=== PATIENT | female | born 1995 | race Caucasian/White ===

== ENCOUNTER → 2017-01-30 | Outpatient (CLI) | payer OTHER ==
--- NOTE | 2017-01-30 16:50 | REP ---
Left hand series: Four views. History: Pain. Findings: Four views of the left hand demonstrate normal bones, joints and soft tissues. Impression: Negative left hand radiographs. Signed by Ellis Barbosa MD 01/30/2017 04:43 P
--- NOTE | 2017-01-30 16:51 | REP ---
Left wrist series: Four views. History: Left wrist pain. Findings: Four views of the left wrist demonstrate normal bones, joints, and soft tissues. No fracture or subluxation is seen. Impression: Negative left wrist series. Signed by Ellis Barbosa MD 01/30/2017 04:43 P
--- NOTE | 2017-01-31 08:29 | REP ---
Left forearm series: Two views. History: Left wrist pain. Findings: AP and lateral views of the left forearm demonstrate normal bones, joints, and soft tissues. No fracture or subluxation is seen. Impression: Negative left forearm. Signed by Ellis Barbosa MD 01/31/2017 08:43 A
== END ==
LOC: M LRY 16:16
PROVIDERS: ATTEND Physician Assistant
DX: M25.532 Pain in left wrist (principal)

== ENCOUNTER → 2017-12-24 | Outpatient (REF) | payer OTHER ==
[2017-12-24 17:17] LABS: INFLUENZA A AMPLIFICATION POSITIVE (NEGATIVE); INFLUENZA B AMPLIFICATION NEGATIVE (NEGATIVE)
== END ==
LOC: M SFHCLERA 10:28
DX: J02.9 Acute pharyngitis, unspecified (principal); R68.89 Other general symptoms and signs